=== PATIENT | female | born 1945 | race Caucasian/White ===

== ENCOUNTER 2020-08-25 08:04 | Day surgery (SDC) | payer MEDICARE, SELFPAY ==
--- NOTE | 2020-08-24 09:41 | P.CONAN_ITS ---
Documented by User: Odalys Dueñasney 08/24/20 09:42 HPI - Anesthesia Eval Consult details Narrative: 75yo F for Colonoscopy PMFSH Active Problems Active Problems: All Active Problems (Updated 07/11/20 @ 10:24 by Ryan Tian, RN) Screening for colon cancer (Acute) Past Medical History Medical History Arrhythmia Cancer Depression Diabetes Elevated cholesterol GERD (gastroesophageal reflux disease) HTN (hypertension) Hx of chronic arthritis Lab test negative for COVID-19 virus Obesity Surgical History Surgical History (Updated 07/07/20 @ 15:57 by Rafia Castaneda) Hx of cholecystectomy Hx of colonoscopy Social History Social History (Updated 07/07/20 @ 15:50 by Rafia Castaneda) Alcohol intake: never Smoking Status: Never smoker Second Hand Smoke Exposure: No Advance Directives: No Advance Directives Information Provided: Yes Meds Allergies Allergy/AdvReac Type Severity Reaction Status Date / Time No Known Allergies Allergy Unknown UNKNOWN Verified 08/25/20 09:02 [NO KNOWN ALLERGIES] Home Medications Medication Instructions Recorded Confirmed Last Taken Type amlodipine 1 tab PO QAM 03/16/20 07/07/20 Unknown History aspirin 1 tab PO QAM 03/16/20 07/07/20 Unknown History atorvastatin 1 tab PO BEDTIME 03/16/20 07/07/20 Unknown History calcium carbonate-vitamin D3 1 tab PO BID 03/16/20 07/07/20 Unknown History [Calcium 600 + D(3)] cholecalciferol (vitamin D3) 1 tab PO QAM 03/16/20 07/07/20 Unknown History citalopram 1 tab PO QAM 03/16/20 07/07/20 Unknown History irbesartan 1 tab PO QAM 03/16/20 07/07/20 Unknown History loratadine 1 tab PO QAM 03/16/20 07/07/20 Unknown History metformin 1 tab PO BID 03/16/20 07/07/20 Unknown History metoprolol succinate 1 tab PO QAM 03/16/20 07/07/20 Unknown History omega-3 fatty acids-fish oil [Fish 1 cap PO BID 03/16/20 07/07/20 Unknown History Oil] omeprazole 1 cap PO BID 03/16/20 07/07/20 Unknown History Exam Exam Date and Time: August 24, 2020 09 Assessment and Plan Assessment Anesthesia Assessment: Chart Reviewed Documented by User: Cielo Hernandez 08/25/20 09:04 [facility] Past Medical History Medical History Arrhythmia Cancer Depression Diabetes Elevated cholesterol GERD (gastroesophageal reflux disease) HTN (hypertension) Hx of chronic arthritis Lab test negative for COVID-19 virus Obesity Surgical History Surgical History (Updated 07/07/20 @ 15:57 by Rafia Castaneda) Hx of cholecystectomy Hx of colonoscopy Social History Social History (Updated 07/07/20 @ 15:50 by Rafia Castaneda) Alcohol intake: never Smoking Status: Never smoker Second Hand Smoke Exposure: No Advance Directives: No Advance Directives Information Provided: Yes Meds Allergies Allergy/AdvReac Type Severity Reaction Status Date / Time No Known Allergies Allergy Unknown UNKNOWN Verified 08/25/20 09:02 [NO KNOWN ALLERGIES] Home Medications Medication Instructions Recorded Confirmed Last Taken Type amlodipine 1 tab PO QAM 03/16/20 07/07/20 Unknown History aspirin 1 tab PO QAM 03/16/20 07/07/20 Unknown History atorvastatin 1 tab PO BEDTIME 03/16/20 07/07/20 Unknown History calcium carbonate-vitamin D3 1 tab PO BID 03/16/20 07/07/20 Unknown History [Calcium 600 + D(3)] cholecalciferol (vitamin D3) 1 tab PO QAM 03/16/20 07/07/20 Unknown History citalopram 1 tab PO QAM 03/16/20 07/07/20 Unknown History irbesartan 1 tab PO QAM 03/16/20 07/07/20 Unknown History loratadine 1 tab PO QAM 03/16/20 07/07/20 Unknown History metformin 1 tab PO BID 03/16/20 07/07/20 Unknown History metoprolol succinate 1 tab PO QAM 03/16/20 07/07/20 Unknown History omega-3 fatty acids-fish oil [Fish 1 cap PO BID 03/16/20 07/07/20 Unknown History Oil] omeprazole 1 cap PO BID 03/16/20 07/07/20 Unknown History
[2020-08-25 08:50] LABS: Glucose, Whole Blood 147 mg/dL (60-115)
[2020-08-25 09:03] VITALS: BP 121/65; PULSE 85; RESP 18; TEMP 36.4; O2SAT 98; BMI 42.0
[2020-08-25] MEDS: Lactated Ringers 1,000 ML 100 ML IVCONT (09:14)
--- NOTE | 2020-08-25 09:18 | P.CONAN_ITS ---
[facility] Active Problems Active Problems: All Active Problems (Updated 08/24/20 @ 09:42 by Odalys hui) Screening for colon cancer (Acute) Past Medical History Medical History Arrhythmia Cancer Depression Diabetes Elevated cholesterol GERD (gastroesophageal reflux disease) HTN (hypertension) Hx of chronic arthritis Lab test negative for COVID-19 virus Obesity Surgical History Surgical History Hx of cholecystectomy Hx of colonoscopy Social History Social History Alcohol intake: never Smoking Status: Former smoker Second Hand Smoke Exposure: No Use of substances other than those prescribed or required for medical reasons: No Advance Directives: No Advance Directives Information Provided: Yes Meds Allergies Allergy/AdvReac Type Severity Reaction Status Date / Time No Known Allergies Allergy Unknown UNKNOWN Verified 08/25/20 09:02 [NO KNOWN ALLERGIES] Active Medications: Current Medications Generic Name Dose Route Start Last Admin Trade Name Lon PRN Reason Stop Dose Admin Lactated Ringer's 1,000 mls @ 100 mls/hr 08/25/20 08:45 08/25/20 09:14 Lr IVCONT 100 mls/hr .Q10H AMIRAH Administration Home Medications Medication Instructions Recorded Confirmed Last Taken Type amlodipine 1 tab PO QAM 03/16/20 07/07/20 Unknown History aspirin 1 tab PO QAM 03/16/20 07/07/20 Unknown History atorvastatin 1 tab PO BEDTIME 03/16/20 07/07/20 Unknown History calcium carbonate-vitamin D3 1 tab PO BID 03/16/20 07/07/20 Unknown History [Calcium 600 + D(3)] cholecalciferol (vitamin D3) 1 tab PO QAM 03/16/20 07/07/20 Unknown History citalopram 1 tab PO QAM 03/16/20 07/07/20 Unknown History irbesartan 1 tab PO QAM 03/16/20 07/07/20 Unknown History loratadine 1 tab PO QAM 03/16/20 07/07/20 Unknown History metformin 1 tab PO BID 03/16/20 07/07/20 Unknown History metoprolol succinate 1 tab PO QAM 03/16/20 07/07/20 Unknown History omega-3 fatty acids-fish oil [Fish 1 cap PO BID 03/16/20 07/07/20 Unknown H istory Oil] omeprazole 1 cap PO BID 03/16/20 07/07/20 Unknown History Exam Exam Date and Time: August 25, 2020917 Height,Weight and Vital Signs: Height 5 ft 2 in Weight 104.326 kg Last Vital Signs Temp 97.5 F 08/25/20 09:03 Pulse 85 08/25/20 09:03 Resp 18 08/25/20 09:03 BP 121/65 08/25/20 09:03 Pulse Ox 98 08/25/20 09:03 Pertinent Lab Results Pertinent Lab Results: Laboratory Tests 08/25/20 08:36 POC Glucose 147 H Airway Mallampati Class: IV TM Dist: >3cm Neck ROM: Full Heart: RRR Lungs: CTA
--- NOTE | 2020-08-25 09:28 | P.HPSUR_ITS ---
Pre-Procedural Eval Section A The patient is an INPATIENT: No Section B Chief Complaint: hx of colon polyp Details of Present Illness: For screening colonoscopy. Denies any significant GI complaints. Patient says that she is healthy enough to undergo 1 more screening colonoscopy Relevant Family History (Specify if Yes): No Relevant Social History: None Present Medications: see Short Stay Collaborative assessment Medical History: Significant History (Diabetes, hypertension, obesity) History of Previous Operations: No relevant previous surgery Allergies: Allergies Allergy/AdvReac Type Severity Reaction Status Date / Time No Known Allergies Allergy Unknown UNKNOWN Verified 08/25/20 09:02 [NO KNOWN ALLERGIES] Review of Systems Sugical H&P ROS: Negative: Constitution, Cardiovascular, Respiratory, N eurological, Psychiatric, Hem-Onc, Allergic/Immunologic, Gastrointestinal, Genitourinary, Musculoskeletal, Integumentary, Endocrine and Eyes/Ears/Nose/Throat Exam Surgical H&P Exam: Normal: HEENT, Normal: Heart, Normal: Lungs, Normal: Extremities, Normal: Abdomen, Normal: Skin and Normal: Neurological Plan Diagnosis/Plan: Unchanged I have reviewed the history and physical and performed a pertinent physical examination on my patient. No changes have occurred unless specified.
--- NOTE | 2020-08-25 10:14 | W.PM.OPN ---
Operative Note Operative Note Date of Service: 08/25/20 Narrative: Preop diagnosis: History of tubular adenomas Postop diagnosis: 1. Diffuse diverticulosis throughout the entire colon 2. External hemorrhoids Procedure done: Colonoscopy Surgeon: Toña Cruz MD Patient is a 75 year female had a colonoscopy in [address] Diego showing tubular adenomas. She had been told at that time to have another colonoscopy in 5 years. She understood the technique of the procedure. She was aware of the risks, benefits, and alternatives. She was brought to the operating room and placed in left lateral decubitus position under monitored anesthesia care. A full digital rectal was done. She did have large external hemorrhoids. The tip of the Olympus colonoscope was gently inserted through the anal orifice and advanced with insufflation all the way to the cecum. The cecum was intubated. The cecum was identified by visualization of the ileocecal valve as well as the appendiceal orifice. The cecal mucosa was unremarkable. The scope was slowly withdrawn with careful examination of the entire colonic mucosa being done with scope withdrawal. The patient had adequate bowel prep so it was unlikely that any lesion may have been missed. There was note of diffuse diverticulosis throughout the entire length of colon. This was heavy in some segments. The rectum was reached and there were no lesions seen. The anal canal was unremarkable except for external hemorrhoids. The scope was then withdrawn completely with desufflation. The patient tolerated the procedure well. There were no immediate complications noted. Estimated blood loss was 0. Withdrawal time was more than 6 minutes. She was transferred to the recovery room with stable vital signs. This is probably going to be her last colonoscopy for screening purposes.
[2020-08-25 10:18] VITALS: BP 128/57; PULSE 73; RESP 16; TEMP 36.8; O2SAT 100
[2020-08-25 10:33] VITALS: BP 130/53; PULSE 80; RESP 17; TEMP 36.8; O2SAT 98
--- NOTE | 2020-08-25 16:20 | HO.POSTANES ---
Post Anesthesia Evaluation Post Anesthesia Evaluation Vital Signs: Vital Signs Temp Pulse Resp BP Pulse Ox 08/25/20 10:33 98.3 F 80 17 130/53 L 98 08/25/20 10:18 98.3 F 73 16 128/57 L 100 08/25/20 09:03 97.5 F 85 18 121/65 98 Anesthesia: Monitored Mental Status: Awake Pain Control: Satisfactory Nausea/Vomiting: None Hydration: Adequate Anesthesia-Related Issues: No Anes. Related Issues Comments: a
== END 2020-08-25 11:05 | disposition home or self-care (01) ==
LOC: HO.SSS 08:05
PROVIDERS: PCP Family Medicine; Visit Provider Surgery
PROC: 0DJD8ZZ Inspection of Lower Intestinal Tract, Via Natural or Artificial Opening Endoscopic (ICD-10-PCS; CPT 45378; principal; 2020-08-25 09:50)
DX: Z12.11 Encounter for screening for malignant neoplasm of colon (principal); Z86.010 Personal history of colon polyps; K57.30 Diverticulosis of large intestine without perforation or abscess without bleeding; K64.4 Residual hemorrhoidal skin tags; K21.9 Gastro-esophageal reflux disease without esophagitis; I10 Essential (primary) hypertension; E11.9 Type 2 diabetes mellitus without complications; Z79.84 Long term (current) use of oral hypoglycemic drugs; Z79.82 Long term (current) use of aspirin; Z79.899 Other long term (current) drug therapy; E66.9 Obesity, unspecified; Z68.42 Body mass index [BMI] 45.0-49.9, adult; Z90.49 Acquired absence of other specified parts of digestive tract; Z85.828 Personal history of other malignant neoplasm of skin
CPT/HCPCS: G0105; 82947

== ENCOUNTER 2020-12-12 08:04 | Outpatient (REF) | payer MEDICARE, SELFPAY | END 2020-12-12 08:05 | disposition home or self-care (01) | LOC: HO.HOSX 08:04 | PROVIDERS: Visit Provider Orthopaedic Surgery | DX: Z13.89 Encounter for screening for other disorder (principal) ==

== ENCOUNTER → 2020-12-28 14:45 | Outpatient (BNVA) | payer MEDICARE, SELFPAY | PROVIDERS: PCP Family Medicine; Referring Provider Family Medicine; Visit Provider Internal Medicine Cardiovascular Disease | DX: I48.0 Paroxysmal atrial fibrillation (principal); I10 Essential (primary) hypertension | CPT/HCPCS: 93005; 99212 ==

== ENCOUNTER → 2021-01-05 14:01 | Outpatient (REF) | payer MEDICARE, SELFPAY ==
--- NOTE | 2021-01-05 14:04 | HM_ITS ---
TEST PERFORMED: Cardiac event monitoring. ENROLLMENT PERIOD: 01/09/2021 to 02/02/2021 - 24 days. INDICATION: Paroxysmal atrial fibrillation. REQUESTING PHYSICIAN: Dr. Ariel Koch. FINDINGS: In the above monitoring period, underlying rhythm was sinus. Rate ranged from 76 beats per minute to 94 beats per minute. Isolated PVC recorded. During one instance of the patient reported chest pain, underlying rhythm was sinus. Another instance had palpitations but again showed sinus rhythm. One further instance of passed out but then there is a notation that this was falsely reported, but the rhythm was again sinus. CONCLUSION: Study shows sinus rhythm only and no evidence of any atrial fibrillation, one isolated PVC. Sourav Villarreal MD HS/MODL / [id number]
== END ==
LOC: HO.CARD 14:01
PROVIDERS: PCP Family Medicine; Visit Provider Internal Medicine Cardiovascular Disease
DX: I48.0 Paroxysmal atrial fibrillation (principal)
CPT/HCPCS: 93270

== ENCOUNTER 2021-08-20 08:25 | Outpatient (REF) | payer MEDICARE, SELFPAY | END 2021-08-20 08:26 | disposition home or self-care (01) | LOC: HO.HOSX 08:25 | PROVIDERS: Visit Provider Orthopaedic Surgery | DX: Z13.89 Encounter for screening for other disorder (principal) ==

== ENCOUNTER 2021-09-07 14:12 | Outpatient (REF) | payer OTHER, SELFPAY ==
--- NOTE | ~2021-09-07 | XR_ITS ---
EXAMINATION: XR CHEST CLINICAL INFORMATION: Cough COMPARISON: Previous chest x-ray most recent October 2017 TECHNIQUE: 2 views of the chest were obtained. FINDINGS: The cardiac and mediastinal contours are stable. There is question of central bronchial wall thickening. The lungs are otherwise clear. There is no pleural effusion or pneumothorax. There are degenerative changes of the spine. XR/XR chest 2V IMPRESSION: Question central bronchial wall thickening. No evidence of pneumonia.
== END 2021-09-07 14:13 | disposition home or self-care (01) ==
LOC: HO.XRAY 14:12
PROVIDERS: Absent Provider Family Medicine; PCP Family Medicine; Visit Provider Emergency Medicine
DX: R05.9 Cough, unspecified (principal)
CPT/HCPCS: 71046

== ENCOUNTER → 2021-11-19 12:51 | Outpatient (BNVA) | payer OTHER, SELFPAY | PROVIDERS: PCP Family Medicine; Visit Provider Orthopaedic Surgery | DX: M17.0 Bilateral primary osteoarthritis of knee (principal) | CPT/HCPCS: 20610; 99202; J1100 ==

== ENCOUNTER → 2021-12-31 14:19 | Outpatient (BNVA) | payer OTHER, SELFPAY | PROVIDERS: PCP Family Medicine; Referring Provider Family Medicine; Visit Provider Internal Medicine Cardiovascular Disease | DX: R00.2 Palpitations (principal); I48.0 Paroxysmal atrial fibrillation | CPT/HCPCS: 93005; 99212 ==

== ENCOUNTER → 2022-04-02 10:15 | Outpatient (REF) | payer OTHER, SELFPAY ==
--- NOTE | 2022-04-02 10:45 | CA_ITS ---
Transthoracic Echocardiogram Patient (Last, First, Middle): Mary Kaur, Gender: Female Date of : 1945 Age: 77 Procedure Date: 04/02/2022 Procedure Type: Transthoracic Echocardiogram Location: OP Height: 162.56 cm Weight: 102.06 kg BSA: 2.06 m2 Heart Rate: bpm BP: 122 / 70 mmHg Advertising Teacher: MARIN Referring MD: Ariel Koch MD Symptoms: R00.2 - Palpitations Study Quality: Fair Conclusions: - 1. Normal LV systolic function with mild LVH with impaired relaxation filling pattern 2. Normal cardiac valvular Dopplers 3. No gross pericardial effusion Findings Left Ventricle Normal left ventricular size and systolic function. There is mildly increased left ventricular wall thickness. The visually estimated ejection fraction is between 60-65%. Spectral Doppler is indicative of an impaired relaxation filling pattern. E/E prime ratio is between 8 and 15 consistent with indeterminate filling pressures. Right Ventricle Normal right ventricular cavity size and systolic function. Atria Both atria are normal in size. Interatrial shunt cannot be excluded. Aortic Valve The aortic valve was not well visualized. There is no aortic valve stenosis. There is no aortic valve regurgitation. Mitral Valve Likely normal mitral valve structure and function. There is trace mitral valve regurgitation. There is no mitral valve stenosis. Pulmonic Valve The pulmonic valve was not well visualized. Tricuspid Valve Likely normal tricuspid valve structure and function. Tricuspid regurgitation envelope is inadequate for calculation of right ventricular systolic pressure. Normal right atrial pressure. Great Vessels All visible segments of the aorta are normal in size. The pulmonary artery was not well visualized. Venous The inferior vena cava is normal in size and collapses greater than 50% with inspiration. Pericardium/Pleural There is no evidence of pericardial effusion. Prior Study Comparison no previous study in the last 5 years for comparison Measurements 2D Linear Measurements IVSd: 1.30 0.6-0.9/0.6-1.0 cm LVIDd: 4.19 3.9-5.3/4.2-5.9 cm LVIDd Index: 2.03 2.4-3.2/2.2-3.1 cm/m2 LVIDs: 2.65 2.0-3.6 cm LVPWd: 1.32 0.7-1.1 cm LA Diam: 3.60 2.7-3.8/3.0-4.0 cm LAIDs Index: 1.75 1.5-2.3 cm/m2 LV Mass: 269.62 67-162/88-224 g LV Mass Index: 130.88 43-95/49-115 g/m2 LVOT Diam: 1.80 3.0+(-)1.3 cm 2D Systolic Function EF 4C: 60.30 >55% EF 2C: 61.40 >55% EF BiP: 60.60 >55% Mitral Valve MV Pk E: 0.73 MV PK A: 0.90 MV Decel Time: 205.00 E/A: 0.80 E'Lateral: 6.42 E'Medial: 5.44 E/E' Med: 13.50 E/E' Lat: 11.40 PHT: 60.00 MVA PHT: 3.67 Decel [place]: 3.58 Aortic Valve AoV Pk Aashish: 1.64 AoV Mn Aashish: 1.04 AoV VTI: 0.37 AoV Pk Grad: 11.00 Aov Mn Grad: 5.00 NEERAJ Cont.VTI: 2.04 LVOT LVOT Pk Aashish: 1.10 LVOT Mn Aashish: 0.77 LVOT VTI: 0.30 LVOT Pk Grad: 5.00 LVOT Mn Grad: 3.00 LVOT Diam: 1.80 LVOT Area: 2.54 Diastolic Function MV Pk E: 0.73 MV Pk A: 0.90 E/A: 0.80 E'Medial: 5.44 E/E' Med: 13.50 E' Laterial: 6.42 E/E' Lat: 11.40 Right Ventricle TAPSE (mm): 27.20 TVS' Aashish: 11.10 Tricuspid Valve RA Press: 3.00 Great Vessels Aorta Sinus of Valsalva: 3.17 2.0-3.[address] [place]: 2.51 1.7-3.4 cm Ao Asc: 3.30 2.1-3.4 cm Updated in Other Vendor System with Status of Final Ariel Koch MD electronically signed on 04/03/2022 1:58:32 PM with status of Final
--- NOTE | 2022-04-02 10:45 | HM_ITS ---
* Total monitoring time 3 days and 7 hours. * Underlying rhythm is sinus. Average rate 72/Min. Range 62 to 98/Min. * Frequent supraventricular ectopy. [place] of 7.3%. Brief episodes noted. Longest 12 beats. * Rare ventricular ectopy with minimal burden. * No significant pauses or AV blocks. * No symptoms in diary. MTDD
== END ==
LOC: HO.CARD 10:15
PROVIDERS: Visit Provider Internal Medicine Cardiovascular Disease
DX: R00.2 Palpitations (principal)
CPT/HCPCS: 93242; 93306

== ENCOUNTER 2022-12-31 12:42 | Outpatient (AMB) | payer OTHER, SELFPAY ==
[2022-12-31 12:51] VITALS: BP 114/74; PULSE 76; BMI 39.9
--- NOTE | 2022-12-31 12:51 | A.OFFVIS_ITS ---
Intake Vital Signs 12/31/22 12:51 Height 5 ft 2 in Weight 218 lb 4.122 oz BMI 39.9 BP 114/74 Blood Pressure Location Lt brachial Position Sitting Pulse 76 Intake Visit Reasons: 1 yr f/up Intake Note: 1 year follow-up with ekg feeling ok Electronic Maintenance Supervisor Required: Yes Electronic Maintenance Supervisor Name: Roxane booth Lumber Inspector: Lumber Inspector Present Accompanied by: Spouse Allergies No Known Allergies [NO KNOWN ALLERGIES] Allergy (Unknown, Verified 08/25/20 09:02) UNKNOWN Medication List - Last Reconciled 12/31/22 by Ariel Koch MD amlodipine 10 mg PO QAM atorvastatin 80 mg PO BEDTIME bisacodyl (Dulcolax (bisacodyl)) 5 mg PO BEDTIME 1 day calcium carbonate-vitamin D3 600 mg-5 mcg (200 unit) (Calcium 600 + D(3)) 1 tab PO BID cholecalciferol (vitamin D3) (Vitamin D3) 25 mcg PO DAILY citalopram 20 mg PO QAM diclofenac sodium 1% grams topical BID ferrous sulfate 325 mg PO DAILY glipizide 5 mg PO BID irbesartan 300 mg PO QAM loratadine 10 mg PO QAM metformin 500 mg PO BID metoprolol succinate ER 100 mg PO QAM naloxone 4 mg/actuation (Narcan) 1 spray intranasal ONCE PRN omega-3 fatty acids-fish oil 340-1,000 mg (Fish Oil) 1 cap PO BID omeprazole 20 mg PO BID HPI HPI Comments History of Present Illness Details Mary Comes for follow-up. History obtained with help of guide tour. She continues to intermittent episode of palpitation less last for few seconds which she describes rapid heart rate. She denies any prolonged irregular heartbeat or palpitations. Takes all medications. No lightheadedness, syncope. Does not exercise much but with routine activity she denies any symptoms of chest pain or shortness of breath. No heart failure symptoms. PFS Medical History Arrhythmia Cancer Depression Diabetes Elevated cholesterol GERD (gastroesophageal reflux disease) HTN (hypertension) Hx of chronic arthritis Lab test negative for COVID-19 virus Obesity Paroxysmal atrial fibrillation Surgical History Hx of cholecystectomy Hx of colonoscopy Social History Alcohol intake: never Second Hand Smoke Exposure: No Review of Systems Const Denies chills, Denies fatigue, Denies fever(s), Denies frequent falls, Denies weakness, Denies weight gain and Denies weight loss ENT Denies dizziness Card Denies chest pain, Denies leg edema, Denies lightheadedness, Denies palpitations, Denies dyspnea, Denies dyspnea on exertion, Denies orthopnea and Denies other (loss of consciousness) Resp Denies cough, Denies dyspnea and Denies dyspnea on exertion GI Denies hematochezia and Denies change in stool character Musc Denies abnormal gait, Denies muscle weakness, Denies numbness, Denies radiating pain into limb and Denies tingling Neuro Denies abnormal gait, Denies dizziness, Denies frequent falls, Denies numbness, Denies tingling and Denies weakness Endo Denies fatigue and Denies palpitations Physical Exam Vital Signs: Last Vital Signs Pulse 76 12/31/22 12:51 BP 114/74 12/31/22 12:51 BMI result Body Mass Index 39.9 Const General: cooperative, comfortable, no acute distress, alert and awake Nutritional Appearance: obese morbidly obese Orientation/consciousness: patient oriented x3 Limitations: no limitations Neck Neck: Yes trachea midline, Yes supple and Yes no JVD Resp Effort & Inspection: normal respiratory effort Auscultation: clear to auscultation bilaterally and diminished lung sounds Cardio Jugular venous distension: no JVD Rate: regular rate Rhythm: regular rhythm Heart sounds: S1 normal heart sound present and S2 normal heart sound present GI Inspection: Yes Abdominal panniculus present and Yes obesity Auscultation: normal bowel sounds Skin General skin exam: no rashes or lesions noted Neuro General: patient oriented x3 and no focal motor deficits Extrem General: Yes no clubbing, cyanosis or edema Office Procedures EKG Details: EKG shows normal sinus rhythm with normal EKG [id number], Complete Assessment & Plan Assessment & Plan (1) Paroxysmal atrial fibrillation: Comment: One episode in setting of acute medical illness Code(s): I48.0 - Paroxysmal atrial fibrillation Plan: paroxysmal atrial fibrillation without any obvious clinical recurrence including with Holter monitor. Her symptoms of intermittent palpitations most likely related to her PACs. Benign nature of this was discussed. Avoidance of stimulants was discussed. No specific pharmacotherapy advised. There is no indication for anticoagulation as her in only episode of atrial fibrillation was triggered by acute medical illness. Continue metoprolol therapy. Continue participate in weight loss program and blood pressure control, see below. (2) HTN (hypertension): Code(s): I10 - Essential (primary) hypertension Plan: Hypertension which is currently well optimized on multiple medications. Continue the same. Importance of good blood pressure control was discussed. Continue amlodipine, metoprolol, irbesartan. Target goal blood pressure less t palacios 130/84. Low-salt diet was discussed advised to participate in regular physical activity and weight loss program. Will follow up in the clinic in 1 year's time, sooner p.r.n.. Thank you for al lowing me to partake in her care Coding Level of Care Code Est Pt Level 4 (44906) Diagnoses Paroxysmal atrial fibrillation I48.0 HTN (hypertension) I10 CPT Codes EKG - CPT: 24690-[id number], Complete ([id number])
== END 2022-12-31 13:14 | disposition home or self-care (01) ==
PROVIDERS: Visit Provider Internal Medicine Cardiovascular Disease
DX: I48.0 Paroxysmal atrial fibrillation (principal); I10 Essential (primary) hypertension
CPT/HCPCS: 93010; 99214

== ENCOUNTER → 2022-12-31 12:42 | Outpatient (BNVA) | payer OTHER, SELFPAY | PROVIDERS: Visit Provider Internal Medicine Cardiovascular Disease | DX: R00.2 Palpitations (principal); I10 Essential (primary) hypertension; I48.0 Paroxysmal atrial fibrillation; E66.01 Morbid (severe) obesity due to excess calories; Z68.39 Body mass index [BMI] 39.0-39.9, adult | CPT/HCPCS: 93005; 99212 ==

== ENCOUNTER 2023-03-20 14:48 | Outpatient (REF) | payer OTHER, SELFPAY ==
[2023-03-20 16:22] LABS: MANUAL DIFF FLAG NO
[2023-03-20 16:40] LABS: Basophils Percent Auto 0.8 % (0-2); Eosinophils Absolute Auto 0.2 X10*3/uL (0.0-0.4); Eosinophils Percent Auto 4.5 % (0-4); Hematocrit 39.4 % (37.0-47.0); Hemoglobin 12.3 g/dl (12.0-16.0); Imm Gran Abs Auto 0.01 X10*3/uL (0.00-0.03); Imm Gran Pct Auto 0.2 % (0.0-0.4); Lymphocytes Absolute Auto 1.5 X10*3/uL (1.2-4.9); Lymphocytes Percent Auto 28.4 % (20-40); Mean Corpuscular HGB Conc 31.2 g/dl (31.0-35.0); Mean Corpuscular Hemoglobin 29.4 pg (27.0-33.0); Mean Platelet Volume 12.9 fL (9.4-12.3); Monocytes Absolute Auto 0.5 X10*3/uL (0.1-1.2); Monocytes Percent Auto 8.8 % (2-11); Neutrophils Absolute Auto 2.9 x10*3/uL (2.0-8.3); Neutrophils Percent Auto 57.3 % (45-73); Platelet Count 141 X10*3/uL (160-400); Red Blood Count 4.19 X10*6/uL (4.20-5.50); Red Cell Distribution Width 12.3 % (11.0-16.0); White Blood Count 5.1 X10*3/uL (4.8-10.8)
[2023-03-20 17:22] LABS: Alanine Aminotransferase 9 U/L (0-31); Alkaline Phosphatase 63 U/L (39-117); Anion Gap 16 (12-20); Aspartate Amino Transferase 12 U/L (5-31); Bilirubin Direct 0.3 mg/dL (0.0-0.5); Bilirubin Total 1.1 mg/dL (0.0-1.0); Blood Urea Nitrogen 23 mg/dL (9-16); Calcium 9.1 mg/dL (8.4-10.2); Carbon Dioxide 23 mmol/L (22-29); Chloride 108 mmol/L (96-108); Cholesterol 162 mg/dL (<200); Estimated Glomerular Filt Rate 44; Glucose Random 139 mg/dL (60-115); HDL Cholesterol 31 mg/dL (>40); Iron 65 mcg/dL (30-160); LDL Cholesterol Calculated 89 mg/dL (<100); Percent Iron Saturation 26 % (15-50); Sodium 142 mmol/L (135-145); Total Iron Binding Capacity 248 mcg/dL (228-428); Total Protein 6.8 g/dL (6.5-8.0); Triglycerides 210 mg/dL (<150); Unsaturated Iron Binding 183 ug/dL
[2023-03-20 17:38] LABS: Ferritin 58 ng/mL (10-250); Thyroid Stimulating Hormone 1.39 uIU/mL (0.32-4.0); Vitamin D 25-OH Total 49.5 ng/mL (>30)
[2023-03-20 17:49] LABS: Folate 11.9 ng/mL (> or = 4.0); Vitamin B12 526 pg/mL (200-900)
[2023-03-20 18:06] LABS: Creatinine Urine 140.31 mg/dL; Microalbum/Creatinine Ratio Ur 6.4 ug/mg cr (<30)
== END 2023-03-20 14:49 | disposition home or self-care (01) ==
LOC: HO.HHCL 14:48
PROVIDERS: Visit Provider Family Medicine
DX: E11.40 Type 2 diabetes mellitus with diabetic neuropathy, unspecified (principal); E55.9 Vitamin D deficiency, unspecified; E78.5 Hyperlipidemia, unspecified
CPT/HCPCS: 36415; 80048; 80061; 80076; 82043; 82306; 82570; 82607; 82728; 82746; 83540; 84443; 85025

== ENCOUNTER 2024-03-25 23:08 | Emergency (ER) | payer OTHER, SELFPAY ==
--- NOTE | ~2024-03-25 | CT_ITS ---
EXAMINATION CT HEAD WITHOUT CONTRAST CT CERVICAL SPINE WITHOUT CONTRAST CLINICAL INFORMATION: Fall, pain COMPARISON: None TECHNIQUE: CT of the head was performed without intravenous contrast. Reformatted axial, coronal, and sagittal images were reviewed. Then, multidetector CT of the cervical spine was performed without intravenous contrast. Reformatted axial, coronal and sagittal images were reviewed. This CT examination was performed using dose optimization techniques as appropriate, variously including the following: *Automated exposure control *Adjustment of mA and/or kV according to patient size (this includes techniques or standardized protocols for targeted exams where dose is matched to indication/reason for exam; i.e. extremities or head) *Use of iterative reconstruction technique DLP: 755 mGy-cm FINDINGS: HEAD: No intracranial hemorrhage, extra-axial fluid collection, or midline shift is identified. Mccartney-white matter differentiation is preserved. Prominence of the cerebral sulci with commensurate ventriculomegaly consistent with age-related cerebral volume. Basal cisterns are within normal limits. Paranasal sinuses are clear. Mastoid air cells and middle ear cavities are clear. Midline frontal scalp hematoma. No acute calvarial fractures. Calcifications of the cavernous internal carotid arteries. CERVICAL SPINE: There is no fracture, malalignment or prevertebral soft tissue abnormality seen in the cervical spine. There is no abnormal widening of the predental space, separation of the lateral masses of C1 or facet joint distraction. Vertebral body and intervertebral disc height are normal. No significant central canal or neuroforaminal stenosis. Enlarged right supraclavicular lymph node measuring 1.3 cm. The visualized portions of the lung parenchyma is unremarkable. CT/CT cervical spine wo IV con IMPRESSION: CT HEAD: 1. No acute intracranial abnormality. 2. Age-related cerebral volume loss. CT CERVICAL SPINE: 1. No acute fracture or malalignment of the cervical spine. 2. Enlarged right supraclavicular lymph node 1.3 cm. Electronically signed by: Neri Johnson DO 03/26/2024 12:45 AM EDT
[2024-03-25 23:14] VITALS: BP 147/77; PULSE 88; RESP 18; TEMP 36.6; O2SAT 98; BMI 38.5
--- NOTE | 2024-03-26 00:06 | ED_ITS ---
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 She was walking into the ER with her who was checking in to be seen as the patient She tripped as the entrance and fell forward striking her forehead on the ground She denies any loss of consciousness. She has pain to her forehead His knee neck pain, hip pain Denies any visual changes, lightheadedness or dizziness She denies the use of any blood thinners Her pain as a 11/16 No other complaints or concerns at this time Related Data Home Medications ?Medication ?Instructions ?Recorded ?Confirmed calcium carbonate 600 mg-vitamin 1 tab PO BID 03/16/20 12/31/22 D3 5 mcg (200 unit) tablet (Calcium 600 + D(3)) omega-3 fatty acids-fish oil 340 1 cap PO BID 03/16/20 12/31/22 mg-1,000 mg capsule (Fish Oil) amlodipine 10 mg tablet 10 mg PO QAM 12/28/20 12/31/22 atorvastatin 80 mg tablet 80 mg PO BEDTIME 12/28/20 12/31/22 citalopram 20 mg tablet 20 mg PO QAM 12/28/20 12/31/22 ferrous sulfate 325 mg (65 mg 325 mg PO DAILY 12/28/20 12/31/22 iron) tablet glipizide 5 mg tablet 5 mg PO BID 12/28/20 12/31/22 irbesartan 300 mg tablet 300 mg PO QAM 12/28/20 12/31/22 loratadine 10 mg tablet 10 mg PO QAM 12/28/20 12/31/22 metoprolol succinate 100 mg 100 mg PO QAM 12/28/20 12/31/22 tablet,extended release 24 hr omeprazole 20 mg capsule,delayed 20 mg PO BID 12/28/20 12/31/22 release cholecalciferol (vitamin D3) 25 25 mcg PO DAILY 11/19/21 12/31/22 mcg (1,000 unit) capsule (Vitamin D3) diclofenac sodium 1 % topical gel g topical BID 11/19/21 12/31/22 metformin 500 mg tablet 500 mg PO BID 11/19/21 12/31/22 naloxone 4 mg/actuation nasal 1 spray intranasal ONCE PRN 11/19/21 12/31/22 spray (Narcan) Previous Rx's ?Medication ?Instructions ?Recorded bisacodyl 5 mg tablet,delayed 5 mg PO BEDTIME 1 day #2 tabs 07/11/20 release (Dulcolax (bisacodyl)) Allergies Allergy/AdvReac Type Severity Reaction Status Date / Time No Known Allergies Allergy Unknown UNKNOWN Verified 03/25/24 23:15 [NO KNOWN ALLERGIES] Review of Systems Constitutional: Constitutional: Denies body ache(s), Denies chills, Denies frequent falls and Reports headache(s) Eyes: Eyes: Denies blurry vision ENT: Denies vertigo, Denies dizziness and Reports headache(s) Cardiovascular: Cardiovascular: Denies chest pain and Denies dyspnea Respiratory: Respiratory: Denies cough and Denies dyspnea Gastrointestinal: Gastrointestinal: Denies abdominal pain, Denies nausea and Denies vomiting Musculoskeletal: Musculoskeletal: Denies back pain Neurologic: Denies vertigo, Denies dizziness, Denies frequent falls and Reports headache(s) Psychiatric: Psychiatric: Denies anxiety PMFSH Past Medical History Medical History Arrhythmia Cancer Depression Diabetes Elevated cholesterol GERD (gastroesophageal reflux disease) HTN (hypertension) Hx of chronic arthritis Lab test negative for COVID-19 virus Obesity Paroxysmal atrial fibrillation Surgical History Hx of cholecystectomy Hx of colonoscopy Social History Social History Alcohol intake: never Smoked in Last 30 Days: No Second Hand Smoke Exposure: No Use of substances other than those prescribed or required for medical reasons: No Advance Directives: No Advance Directives Information Provided: No Physical Exam ED Vital Signs: Vital Signs - 24 hr 03/25/24 23:14 Temperature 97.9 F Pulse Rate 88 Respiratory Rate 18 Blood Pressure 147/77 H Pulse Oximetry 98 Oxygen Delivery Method Room Air BMI result Body Mass Index 38.5 Const General: healthy appearing, comfortable, no acute distress, alert and awake Nutritional Appearance: well nourished Orientation/consciousness: patient oriented x3 HENMT Other: There is a contusion with cutaneous hematoma to the left center forehead Throat: Yes posterior oropharynx normal Eyes Eyelids: Yes eyelids normal Conjunctivae: conjunctivae normal Sclerae: sclerae normal Corneas: corneas normal Pupils: Equal, round and reactive pupils present EOM: EOMs intact bilaterally Neck Neck: Yes full ROM Resp Effort & Inspection: normal respiratory effort, able to speak in complete sentences, no audible wheezes and not labored Auscultation: clear to auscultation bilaterally Cardio Rate: regular rate Rhythm: regular rhythm GI Inspection: No distended Palpation (GI): Soft to palpation, not firm, nontender, no guarding and not rigid Back/Spine/Pelvis Other: There is no C-spine tenderness Skin General skin exam: no rashes or lesions noted and elasticity normal Neuro General: patient oriented x3 Cranial nerves: Yes CN's II-XII intact bilaterally, Yes Equal, round and reactive pupils present and Yes Bilaterally intact EOM present Cognition (Neuro): normal cognition Extrem Other: Moving all extremities well without any obvious deformities Medical Decision Making Medical Decision Making MDM Narrative: 79-year-old female presents for evaluation after a fall. Given the trauma and obvious head injury, plan for CT scan of the brain and cervical spine. There are no focal neuro deficits. this is a witnessed nonsyncopal fall, no indication for EKG or labs at this time Differential Diagnosis Differential Diagnoses: The differential diagnosis associated with the presentation includes Forehead contusion Intracranial hemorrhage Cervical strain Cervical fracture Radiology Impression Discussion of test interpretation with radiology: I have reviewed the radiologist's reading. Radiologist Impression: FINDINGS: HEAD: No intracranial hemorrhage, extra-axial fluid collection, or midline shift is identified. Mccartney-white matter differentiation is preserved. Prominence of the cerebral sulci with commensurate ventriculomegaly consistent with age-related cerebral volume. Basal cisterns are within normal limits. Paranasal sinuses are clear. Mastoid air cells and middle ear cavities are clear. Midline frontal scalp hematoma. No acute calvarial fractures. Calcifications of the cavernous internal carotid arteries. CERVICAL SPINE: There is no fracture, malalignment or prevertebral soft tissue abnormality seen in the cervical spine. There is no abnormal widening of the predental space, separation of the lateral masses of C1 or facet joint distraction. Vertebral body and intervertebral disc height are normal. No significant central canal or neuroforaminal stenosis. Enlarged right supraclavicular lymph node measuring 1.3 cm. The visualized portions of the lung parenchyma is unremarkable. CT/CT head/brain wo IV con IMPRESSION: CT HEAD: 1. No acute intracranial abnormality. 2. Age-related cerebral volume loss. CT CERVICAL SPINE: 1. No acute fracture or malalignment of the cervical spine. 2. Enlarged right supraclavicular lymph node 1.3 cm. Electronically signed by: Neri Johnson DO 03/26/2024 12:45 AM EDT RP Discharge Plan Discharge Clinical Impression: Contusion of forehead Patient Disposition: Home, Self-Care Instructions: Facial Contusion (ED) Additional Instructions: Your CT scans did not show any evidence of traumatic injuries. You do have an enlarged right-sided lymph node by your clavicle. It is unclear why this is enlarged, follow up with your primary doctor Use ibuprofen/Tylenol for pain. Apply ice to the swollen area Return for new or worsening symptoms Prescriptions: No Action bisacodyl [Dulcolax (bisacodyl)] 5 mg tablet,delayed release (DR/EC) 5 mg PO BEDTIME 1 Days Qty: 2 0RF calcium carbonate-vitamin D3 [Calcium 600 + D(3)] 600 mg(1,500mg) -200 unit tablet 1 tab PO BID Fish Oil 340-1,000 mg capsule 1 cap PO BID amlodipine 10 mg tablet 10 mg PO QAM atorvastatin 80 mg tablet 80 mg PO BEDTIME citalopram 20 mg tablet 20 mg PO QAM irbesartan 300 mg tablet 300 mg PO QAM loratadine 10 mg tablet 10 mg PO QAM metoprolol succinate 100 mg tablet extended release 24 hr 100 mg PO QAM omeprazole 20 mg capsule,delayed release(DR/EC) 20 mg PO BID glipizide 5 mg tablet 5 mg PO BID ferrous sulfate 325 mg (65 mg iron) tablet 325 mg PO DAILY diclofenac sodium 1 % gel topical BID cholecalciferol (vitamin D3) [Vitamin D3] 25 mcg (1,000 unit) capsule 25 mcg PO DAILY metformin 500 mg tablet 500 mg PO BID naloxone [Narcan] 4 mg/actuation spray,non-aerosol 1 spray intranasal ONCE PRN Print Language: Latvian
[2024-03-26 01:00] VITALS: BP 147/77; PULSE 88; RESP 18; TEMP 36.6; O2SAT 98
== END 2024-03-26 01:21 | disposition home or self-care (01) ==
PROVIDERS: Emergency Provider Internal Medicine; PCP Family Medicine
DX: S00.83XA Contusion of other part of head, initial encounter (principal); W18.30XA Fall on same level, unspecified, initial encounter; Y93.89 Activity, other specified; Y92.238 Other place in hospital as the place of occurrence of the external cause; Y99.9 Unspecified external cause status
CPT/HCPCS: 70450; 72125; 99284

== ENCOUNTER 2024-04-08 13:07 | Outpatient (REF) | payer OTHER, SELFPAY ==
[2024-04-08 16:49] LABS: Hematocrit 38.6 % (37.0-47.0); Hemoglobin 12.3 g/dl (12.0-16.0); Mean Corpuscular HGB Conc 31.9 g/dl (31.0-35.0); Mean Corpuscular Hemoglobin 30.1 pg (27.0-33.0); Mean Corpuscular Volume 94.4 fL (80.0-98.0); Mean Platelet Volume 12.8 fL (9.4-12.3); Platelet Count 156 X10*3/uL (160-400); Red Blood Count 4.09 X10*6/uL (4.20-5.50); Red Cell Distribution Width 12.7 % (11.0-16.0); White Blood Count 5.9 X10*3/uL (4.8-10.8)
[2024-04-08 16:59] LABS: Estimated Average Glucose 186 mg/dL; Hemoglobin A1C 212.2025 umol/L; Hemoglobin A1c % 8.1 % (<6.0); Total Hemoglobin (HGBA1C) 3255.4292 umol/L
[2024-04-08 17:07] LABS: Alanine Aminotransferase 20 U/L (0-31); Albumin Level 4.2 g/dL (3.5-5.0); Alkaline Phosphatase 60 U/L (39-117); Anion Gap 18 (12-20); Aspartate Amino Transferase 24 U/L (5-31); Bilirubin Direct 0.2 mg/dL (0.0-0.5); Blood Urea Nitrogen 29 mg/dL (9-16); Calcium 9.2 mg/dL (8.4-10.2); Carbon Dioxide 20 mmol/L (22-29); Chloride 108 mmol/L (96-108); Cholesterol 219 mg/dL (<200); Estimated Glomerular Filt Rate 36; Glucose Random 178 mg/dL (60-115); HDL Cholesterol 35 mg/dL (>40); Iron 80 mcg/dL (30-160); LDL Cholesterol Calculated 113 mg/dL (<100); Percent Iron Saturation 31 % (15-50); Potassium 4.6 mmol/L (3.3-5.1); Sodium 141 mmol/L (135-145); Total Iron Binding Capacity 261 mcg/dL (228-428); Total Protein 7.3 g/dL (6.5-8.0); Triglycerides 356 mg/dL (<150); Unsaturated Iron Binding 181 ug/dL
[2024-04-08 17:23] LABS: Ferritin 108 ng/mL (10-250); Free T4 (Free Thyroxine) 0.98 ng/dL (0.71-1.85); Thyroid Stimulating Hormone 1.83 uIU/mL (0.32-4.0); Vitamin D 25-OH Total 75.3 ng/mL (>30)
[2024-04-08 17:31] LABS: Vitamin B12 446 pg/mL (200-900)
[2024-04-08 18:38] LABS: Creatinine Urine 77.25 mg/dL; Microalbum/Creatinine Ratio Ur 7.7 ug/mg cr (<30)
[2024-04-12 11:37] LABS: RPR Rapid Plasma Reagin NON-REACTIVE (NON-REACTIVE)
== END 2024-04-08 13:08 | disposition home or self-care (01) ==
LOC: HO.HHCL 13:07
PROVIDERS: Visit Provider Family Medicine
DX: Z00.00 Encounter for general adult medical examination without abnormal findings (principal); R68.89 Other general symptoms and signs; E11.40 Type 2 diabetes mellitus with diabetic neuropathy, unspecified; E78.5 Hyperlipidemia, unspecified; I10 Essential (primary) hypertension; E78.49 Other hyperlipidemia; F41.9 Anxiety disorder, unspecified; I48.0 Paroxysmal atrial fibrillation; D64.9 Anemia, unspecified; M54.50 Low back pain, unspecified; G89.29 Other chronic pain; M17.0 Bilateral primary osteoarthritis of knee; N18.30 Chronic kidney disease, stage 3 unspecified; R06.09 Other forms of dyspnea; R05.8 Other specified cough
CPT/HCPCS: 36415; 80048; 80061; 80076; 82043; 82306; 82570; 82607; 82728; 82746; 83036; 83540; 84439; 84443; 85027; 86592

== ENCOUNTER 2025-03-01 14:11 | Outpatient (REF) | payer OTHER, SELFPAY ==
[2025-03-01 16:30] LABS: Hemoglobin A1C 304.0735 umol/L; Total Hemoglobin (HGBA1C) 3306.3890 umol/L
[2025-03-01 16:31] LABS: Hematocrit 39.0 % (37.0-47.0); Hemoglobin 12.4 g/dl (12.0-16.0); Mean Corpuscular HGB Conc 31.8 g/dl (31.0-35.0); Mean Corpuscular Hemoglobin 29.0 pg (27.0-33.0); Mean Corpuscular Volume 91.1 fL (80.0-98.0); NRBC Abs Auto 0.000 X10*3/uL (0.0-0.012); NRBC Pct Auto 0.0 /100WBC (0.0-0.2); Platelet Count 177 X10*3/uL (160-400); Red Blood Count 4.28 X10*6/uL (4.20-5.50); White Blood Count 6.3 X10*3/uL (4.8-10.8)
[2025-03-01 17:09] LABS: Microalbum/Creatinine Ratio Ur 126.7 ug/mg cr (<30)
[2025-03-01 17:20] LABS: Folate 11.0 ng/mL (> or = 4.0); Vitamin B12 444 pg/mL (200-900)
--- OUTSIDE RECORDS SUMMARY | 2025-03-01 17:28 | XMS_ITS | Clinical Summary ---
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 05/16/2022 Active Aspirin Low Dose 81 MG EC tablet Take 81 mg by mouth daily 05/16/2022 Active atorvastatin (LIPITOR) 80 MG tablet Take 80 mg by mouth in the morning. 06/13/2022 Active Calcium Carb-Cholecalci ferol 600-5 MG-MCG tablet Take 1 tablet by mouth daily 06/13/2022 Active Vitamin D High Potency 25 MCG (1000 UT) capsule Take 1,000 Units by mouth daily 05/16/2022 Active citalopram (CeleXA) 20 MG tablet Take 1 tablet by mouth 1 (one) time each day 06/13/2022 Active FeroSul 325 (65 Fe) MG tablet Take 1 tablet by mouth 2 (two) times a day 06/13/2022 Active glipiZIDE (GLUCOTROL) 5 MG tablet Take 5 mg by mouth every morning and evening 05/16/2022 Active irbesartan (AVAPRO) 300 MG tablet Take 300 mg by mouth 1 (one) time each day 04/18/2022 Active SM All Day Allergy Relief 10 MG tablet Take 10 mg by mouth 1 (one) time each day 04/18/2022 Active metFORMIN (GLUCOPHAGE) 500 MG tablet Take 1 tablet by mouth in the morning and 1 tablet in the evening. 05/16/2022 Active metoprolol succinate XL (TOPROL-XL) 100 MG 24 hr tablet Take 100 mg by mouth 1 (one) time each day 04/18/2022 Active omega-3 (FISH OIL) 1000 MG capsule Take 1 capsule by mouth in the morning and 1 capsule in the evening. 04/22/2022 Active omeprazole (PriLOSEC) [address] capsule Take 1 capsule by mouth in the morning and 1 capsule in the evening. 04/18/2022 Active oxyCODONE (ROXICODONE) 5 MG immediate release tablet if needed 05/27/2022 Acti ve zolpidem (AMBIEN) 10 MG tablet Take 1 tablet by mouth 1 (one) time each day 06/18/2022 Active Active Problems Problem Noted Date Diagnosed Date Serum creatinine above reference range 3 Social History Tobacco Use Types Packs/Day Years Used Date Smoking Tobacco: Never Assessed Comments Unknown Sex and Gender Information Value Date Recorded Sex Assigned at Not on file Legal Sex Female 11:44 AM EDT Gender Identity Not on file Sexual Orientation Not on file Plan of Treatment Health Maintenance Due Date Last Done Comments Pneumococcal Vaccine: 50+ Ye ars (1 of 2 - PCV) 01/20/1964 Influenza Vaccine (#1) 2025 Hepatitis B Vaccine Aged Out No longe r eligible based on patient's age to complete this topic Insurance [facility] Care Dual SNP ([id number]) Medicaid [place] [facility] One Care Dual SNP ([id number]) Medicaid [place] 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
--- OUTSIDE RECORDS SUMMARY | 2025-03-01 17:28 | XMS_ITS | Continuity of Care Document ---
Author Name Fredrick Fox Address [address] [place] [id number] Organization Unknown Address [address] [place] [address] Medications No known medications Problems No known problems
--- OUTSIDE RECORDS SUMMARY | 2025-03-01 17:28 | XMS_ITS | Encounter Summary ---
Author Organization [facility] Address [address] [place] [address] Encounters * CPT with Fredrick Fox at [facility] on 2024-12-08 Triage call to Pt, Daughter Yulissa speaking for Pt. Pt returned from trip to [place] 12/06/24, Pt always has a cough but, cough now is very dry, and chest hurts when coughing and has a wheezy sound. Unable to sleep due to cough. Neg covid test done at home daughter reports. Pt is drinking adequate liquids, has become more forgetful. Offered WIC but, daughter is battling cancer and it is difficult to take Pt out of house for visit. [facility]. { reasonForRequest : cough , patientReports : , denies :[], chiefComplaints : Cough , pmh : Rheumatoid Arthritis,Allergic Rhinitis, Anemia, Anxiety Disorder, Arrhythmias (e.g., Atrial Fibrillation), Chronic Kidney Disease, Depression, Diabetes Mellitus Type 2, Hypertension, Osteoarthritis , allergies": DEANDRE Inhibitors , otherAllergies :null, painAssessment : &qu ot;, visitOutcome : , additionalComments : HPI reviewed } Patient alert and oriented, strong language barrier, all information through [employer]. Daughter reports patient complains of frequent nonproductive cough, including fits of coughing and insomnia. Daughter reports acute on chronic, complaint present for the last several years, but worse in the last month. Patient denies nasal congestion, sore throat, difficulty breathing, shortness of breath, chest pain, chest pressure, abdomen pain or any pain or complaints. Caregiver reports coughing worse at night and in the morning. Patient denied fever or chills. Patient, pink warm, dry, secondary exam unremarkable, lung sounds clear, negative increased work briefing, positive full sentences, at soft nontender, extremities unremarkable. No edema noted. C will prescribe cough medicine to patient???s local pharmacy. Caregiver will schedule follow up with PCP. Red flags patient education discussed. Opportunity to ask questions provided. Actual arrival time 1250pm. ORAL_MEDICATION, POC_FLU_STREP, COVID_TEST Written by Fredrick Fox on 2024-12-08
[2025-03-01 17:42] LABS: Alanine Aminotransferase 14 U/L (0-31); Albumin Level 4.0 g/dL (3.5-5.0); Alkaline Phosphatase 75 U/L (39-117); Anion Gap 13 (12-20); Aspartate Amino Transferase 15 U/L (5-31); Blood Urea Nitrogen 31 mg/dL (9-16); Calcium 9.3 mg/dL (8.4-10.2); Carbon Dioxide 25 mmol/L (22-29); Chloride 106 mmol/L (96-108); Cholesterol 201 mg/dL (<200); Estimated Glomerular Filt Rate 37; Ferritin 256 ng/mL (10-250); Free T4 (Free Thyroxine) 0.93 ng/dL (0.71-1.85); HDL Cholesterol 27 mg/dL (>40); Iron 59 mcg/dL (30-160); Percent Iron Saturation 28 % (15-50); Potassium 4.5 mmol/L (3.3-5.1); Sodium 139 mmol/L (135-145); Thyroid Stimulating Hormone 1.24 uIU/mL (0.32-4.0); Total Iron Binding Capacity 212 mcg/dL (228-428); Total Protein 7.2 g/dL (6.5-8.0); Triglycerides 237 mg/dL (<150); Unsaturated Iron Binding 153 ug/dL
== END 2025-03-01 14:12 | disposition home or self-care (01) ==
LOC: HO.HHCL 14:11
PROVIDERS: PCP Family Medicine; Visit Provider Family Medicine
DX: Z00.00 Encounter for general adult medical examination without abnormal findings (principal); E11.22 Type 2 diabetes mellitus with diabetic chronic kidney disease; I12.9 Hypertensive chronic kidney disease with stage 1 through stage 4 chronic kidney disease, or unspecified chronic kidney disease; N18.30 Chronic kidney disease, stage 3 unspecified; E11.40 Type 2 diabetes mellitus with diabetic neuropathy, unspecified; I48.0 Paroxysmal atrial fibrillation; M17.0 Bilateral primary osteoarthritis of knee; E78.49 Other hyperlipidemia; R06.09 Other forms of dyspnea; F41.9 Anxiety disorder, unspecified; G89.29 Other chronic pain; R05.8 Other specified cough; R68.89 Other general symptoms and signs; D64.9 Anemia, unspecified; M54.50 Low back pain, unspecified
CPT/HCPCS: 36415; 80048; 80061; 80076; 82043; 82306; 82570; 82607; 82728; 82746; 83036; 83540; 84439; 84443; 85027